=== PATIENT | female | born 1945 | race Two or more races ===

== ENCOUNTER 2024-09-17 12:37 | Emergency (ER) | payer MEDICARE, MEDICAID, SELFPAY ==
[2024-09-17 12:47] VITALS: BP 138/79; PULSE 91; RESP 16; TEMP 36.9; O2SAT 98; BMI 28.1
--- NOTE | 2024-09-17 12:59 | XR_ITS ---
Examination: Left knee 2 views Technique one AP lateral left knee 2 views Date and time: September 17, 2024 1319 hours INDICATIONS: Onset left knee pain today. FINDINGS: Moderate to advanced tricompartment osteoarthritis, most severe lateral joint space Severe osteopenia No fracture IMPRESSION: Moderate to advanced tricompartment osteoarthritis
--- NOTE | 2024-09-17 13:00 | EDNOTE_ITS ---
<Statement entered by Kelly Salomon MD - 09/18/24 09:35> As co-signing physician, I was present and available for consult prn. I concur with the plan and care as documented by the midlevel provider. ED Extremity Problem RME/HPI General Chief complaint: Extremity Problem,Nontraumatic Stated complaint: Left knee pain today Time Seen by Provider: 09/17/24 12:59 Arrival date/time: 09/17/24 12:37 RME / HPI RME / HPI Narrative: 79-year-old female patient came in for evaluation regarding left knee pain. Patient complain of left knee pain, after accidentally twisted the knee. Patient is having difficult ambulating due to pain. Patient has significant history of poorly arthritis. Patient denies any fall denies any other complaints no medications taken prior to arrival Related Data Previous Rx's ?Medication ?Instructions ?Recorded tramadol 50 mg tablet 50 mg PO Q8H PRN pain #20 ta bs 09/17/24 Allergies Allergy/AdvReac Type Severity Reaction Status Date / Time No Known Drug Allergies Allergy Verified 09/17/24 12:42 Review of Systems Review of Systems Narrative Review of Systems: Review of system reviewed and within normal limits except mentioned in HPI ED Exam Narrative Physical exam: VITAL SIGNS: Reviewed. GENERAL APPEARANCE: Alert and interactive, follows commands, no acute distress, HEAD AND FACE: Non-traumatic. ENT: PERRL, pink conjunctivitis, eyelid no trauma, Mucous membrane moist. NECK: Supple, nontender, no nuchal rigidity. CHEST: No tenderness, no crepitus, no paradoxical movement, no retractions. LUNGS: Clear, well ventilated, symmetric, no rales, no wheezing, no ronchi, no stridor, good breath sounds bilaterally. HEART: Regular rate, regular rhythm, no murmur, no gallops. ABDOMEN: Soft, positive bowel sounds, nondistended, no guarding, nontender, no rebound, no masses, RECTAL: Deferred. GENITAL: Deferred. NEUROLOGICAL: Gross motor function intact sensory function intact, Appropriate for age. MUSCULOSKELETAL: low back nontender, full range of motion. EXTREMITIES: Left knee tenderness medial aspect, full range of motion. SKIN: Color pink, dry, no rash, no lacerations, no abrasions, no contusions. LYMPHATICS: Deferred. Course Quality Measures none Orders Category Date Time Status XR knee limited LT 2V Stat Exams 09/17/24 12:59 Completed Ketorolac Inj [Toradol Inj] Med 09/17/24 13:00 Discontinued 30 mg IM X1 ONE Vital Signs Vital signs: Vital Signs Temperature 98.4 F 09/17/24 12:47 Pulse Rate 91 09/17/24 12:47 Respiratory Rate 16 09/17/24 12:47 Blood Pressure 138/79 H 09/17/24 12:47 Pulse Oximetry (%) 98 09/17/24 12:47 Oxygen Delivery Method Room Air 09/17/24 12:47 Extremity Problem MDM Narrative MDM Narrative:: X-ray of the knee is negative for any acute pathology. Patient was advised to closely follow-up with orthopedic surgeon due to worsening arthritis of the knee. Patient received Toradol IM with significant improvement of pain Stable discharge home Patient data External records reviewed:: None Clinical information provided by:: patient Social determinants that could affect healthcare access:: none Patient has the following chronic illnesses:: Knee arthritis How is presenting disease/condition affected by chronic disease/condition?: exacerbated by Evaluation data The following diagnostics were reviewed and interpreted by me:: radiology exam(s) Lab and/or radiology exams considered but not ordered:: None Interpretation Summary: See results MDM Medications / Prescriptions Medications or Prescriptions considered but not ordered:: None Medication administrations:: Medication Administration History Discontinued Medications Ketorolac Tromethamine (Ketorolac Inj 60 Mg/2 Ml Vial) 30 mg IM X1 ONE Stop: 09/17/24 13:01 Last Admin: 09/17/24 13:05 Dose: 30 mg Documented By: ANUP Toradol IM Consultations Consultation(s) initiated? (list below): No Diagnosis Extremity Problem Differential Diagnosis: other (Knee arthritis, knee pain, knee fracture) Most likely diagnosis given after review of the tests above:: Knee pain Admission Indicated Admission indicated?: not indicated Explain why admission is indicated or not indicated:: Stable Admission Request Was there a request for admission?: No Disposition Plan Disposition Plan: Discharge Discharge Attestation Discharge Attestation: The patient and all family members were given an opportunity to ask questions and understood the discharge instructions. Discharge instructions specifically effects, indications for sooner follow up or return to the emergency department, and the expected course of current diagnosis. Patient condition: Stable Discharge Plan Plan Patient Disposition: HOME (Self Care) Discharge Disposition comment: stable Prescriptions/Referrals Prescriptions/Med Rec: New tramadol 50 mg tablet 50 mg PO Q8H PRN (Reason: pain) Qty: 20 0RF Referrals: Renata Cesar NP [Primary Care Provider] - In 1 week Problem List Clinical Impression: Acute knee pain Patient/Caregiver Discharge Instructions Discharge Activity: activity as tolerated Education Materials: Knee Pain Additional Instructions: Thank you for the opportunity for serving you today. You are stable for discharged . You are advised to: Follow-up with your PCP in 1 to 2 days Return to ED for worsening of symptoms Increase oral fluids Take medication as prescribed Print Language: Slovak Stand Alone Forms: Chelsea Award Info., Patient Portal Info Letter PA/JL Supervising Physician PA/JL Supervising Physician: MD Umm
[2024-09-17] MEDS: KETOROLAC INJ 60 MG/2 ML VIAL 30 MG IM (13:05)
== END 2024-09-17 14:33 | disposition home or self-care (01) ==
PROVIDERS: Emergency Provider Nurse Practitioner Family; PCP Nurse Practitioner Family
DX: M17.12 Unilateral primary osteoarthritis, left knee (principal)
CPT/HCPCS: 73560; 96372; 99283; J1885